=== PATIENT | female | born 1995 | race Two or more races ===

== ENCOUNTER 2017-01-03 13:17 | Emergency (ER) | payer OTHER ==
[~2017-01-03] VITALS: Ht 157.5 cm; Wt 65.0 kg
[~2017-01-03 13:17] MED LIST: ALPR-475 PO; INSU100C SQ-INSULIN; INSU100I11 SQ-INSULIN; LISI2.5T PO; SERT25TA PO
[2017-01-03 14:05] LABS: HEMATOCRIT 39.6 % (34.6-47.8); HEMOGLOBIN 13.1 g/dL (11.7-16.4); WHITE BLOOD COUNT 5.4 x10^3/uL (3.4-10)
[2017-01-03 14:18] LABS: ASPARTATE AMINO TRANSFERASE 15 U/L (15-37); BLOOD UREA NITROGEN 7 mg/dL (7-18)
[2017-01-03 14:22] VITALS: BP 146/90
== END 2017-01-03 18:00 | disposition left against medical advice (07) ==
LOC: ED 17:54
DX: R10.30 Lower abdominal pain, unspecified (principal); N93.9 Abnormal uterine and vaginal bleeding, unspecified
CPT/HCPCS: 36415; 80053; 84703; 85025; 99284

== ENCOUNTER 2017-01-22 01:34 | Inpatient (IN) | payer OTHER ==
[~2017-01-22] VITALS: Ht 157.5 cm; Wt 65.9 kg
[2017-01-22] MEDS ORDERED: ONDANSETRON 2MG/ML, 2ML ONE ×2 (01:40→04:19)
[2017-01-22] MEDS ORDERED: SODIUM CHLORIDE 0.9% 1,000ML IVBOLUS ONE ×2 (02:00→15:00)
[2017-01-22] MEDS ORDERED: ONDANSETRON 2MG/ML, 2ML IVPush ONE (02:00)
[2017-01-22 02:30] LABS: HEMATOCRIT 45.6 % (34.6-47.8); HEMOGLOBIN 15.4 g/dL (11.7-16.4); WHITE BLOOD COUNT 10.2 x10^3/uL (3.4-10)
[2017-01-22 02:35] LABS: ASPARTATE AMINO TRANSFERASE 25 U/L (15-37); BLOOD UREA NITROGEN 15 mg/dL (7-18)
[2017-01-22] MEDS ORDERED: DEXTROSE 50%, 50ML VIAL ONE (02:56)
[2017-01-22] MEDS ORDERED: DEXTROSE 50%, 50ML SYRINGE IVPush ONE (03:30)
[2017-01-22] MEDS ORDERED: ACETAMINOPHEN 325 MG TABLET PO ONE (03:30)
[2017-01-22] MEDS ORDERED: D5%-0.45NACL+KCL 20MEQ 1,000 ML IV SCH (03:30)
[2017-01-22] MEDS ORDERED: DEXTROSE 50%, 50ML VIAL IVPush ONE (03:30)
[2017-01-22] MEDS ORDERED: ACETAMINOPHEN 325 MG TABLET ONE (04:01)
[2017-01-22] MEDS: ONDANSETRON 2MG/ML, 2ML IVPush PRN ×2 (04:21→10:16)
[2017-01-22 07:41] VITALS: BP 119/73
[2017-01-22] MEDS ORDERED: ACETAMINOPHEN 325 MG TABLET PO PRN (09:30)
[2017-01-22] MEDS: INSULIN DETEMIR 100 UNITS/ML, PEN SQ-INSULIN SCH ×2 (09:30→20:37)
[2017-01-22] MEDS ORDERED: ONDANSETRON 4 MG TABLET PO ONE (10:00)
[2017-01-22] MEDS ORDERED: HYDROmorphone 2MG TABLET PO ONE (10:00)
[2017-01-22] MEDS: SODIUM CHLORIDE 0.9% 1,000 ML IV SCH ×2 (10:06→17:20)
[2017-01-22] MEDS: MORPHINE SULFATE 4 MG/ML, 1ML IVPush PRN (10:43)
[2017-01-22 12:39] VITALS: BP 128/79
[2017-01-22 20:00] VITALS: BP 122/79
[2017-01-22] MEDS: ENOXAPARIN 40 MG/0.4 ML SQ SCH (22:02)
[2017-01-23] MEDS: SODIUM CHLORIDE 0.9% 1,000 ML IV SCH ×2 (01:03→06:04)
[2017-01-23 02:00] VITALS: BP 129/82
[2017-01-23] MEDS ORDERED: DEXTROSE 50%, 50ML VIAL IVPush PRN (02:00)
[2017-01-23] MEDS ORDERED: DEXTROSE 4 GM TAB.CHEW PO PRN (02:00)
[2017-01-23] MEDS ORDERED: GLUCAGON 1 MG IM PRN (02:00)
[2017-01-23] MEDS: MORPHINE SULFATE 4 MG/ML, 1ML IVPush PRN (02:33)
[2017-01-23 05:42] LABS: HEMATOCRIT 36.6 % (34.6-47.8); HEMOGLOBIN 12.5 g/dL (11.7-16.4); WHITE BLOOD COUNT 8.3 x10^3/uL (3.4-10)
[2017-01-23 06:02] LABS: ASPARTATE AMINO TRANSFERASE 12 U/L (15-37); BLOOD UREA NITROGEN 13 mg/dL (7-18)
[2017-01-23 06:54] VITALS: BP 115/68
[2017-01-23] MEDS: SODIUM CHLORIDE FLUSH 10ML SYR IVF SCH ×2 (08:08→22:10)
[2017-01-23] MEDS: INSULIN DETEMIR 100 UNITS/ML, PEN SQ-INSULIN SCH (08:19)
[2017-01-23 12:43] VITALS: BP 126/78
[2017-01-23 20:00] VITALS: BP 128/78
[2017-01-23] MEDS: ENOXAPARIN 40 MG/0.4 ML SQ SCH (22:10)
[2017-01-24 02:00] VITALS: BP 117/76
[2017-01-24 06:37] VITALS: BP 101/67
[2017-01-24] MEDS: SODIUM CHLORIDE FLUSH 10ML SYR IVF SCH (08:14)
== END 2017-01-24 10:55 | disposition home or self-care (01) | DRG 917 ==
LOC: ED 03:32 → EDIP 04:04 → 4EST 05:54
PROVIDERS: ADMIT Hospitalist; ATTEND Hospitalist
DX: T38.3X1A Poisoning by insulin and oral hypoglycemic [antidiabetic] drugs, accidental (unintentional), initial encounter (principal); E43 Unspecified severe protein-calorie malnutrition; E10.649 Type 1 diabetes mellitus with hypoglycemia without coma; Y92.89 Other specified places as the place of occurrence of the external cause; F10.120 Alcohol abuse with intoxication, uncomplicated; F43.10 Post-traumatic stress disorder, unspecified; E83.51 Hypocalcemia; I10 Essential (primary) hypertension; Z96.41 Presence of insulin pump (external) (internal); G43.909 Migraine, unspecified, not intractable, without status migrainosus; K59.00 Constipation, unspecified; D72.829 Elevated white blood cell count, unspecified; Z79.899 Other long term (current) drug therapy; Z80.3 Family history of malignant neoplasm of breast; Z82.49 Family history of ischemic heart disease and other diseases of the circulatory system; Z68.26 Body mass index [BMI] 26.0-26.9, adult; Z88.8 Allergy status to other drugs, medicaments and biological substances
CPT/HCPCS: 36415; 80053; 80307; 82962; 84702; 84703; 85025; 85610; 85730; 96361; 96374; 96375; J1650; J2405; J1815; J7030

== ENCOUNTER 2017-06-02 17:23 | Emergency (ER) | payer OTHER ==
[~2017-06-02] VITALS: Ht 157.5 cm; Wt 64.4 kg
[2017-06-02] MEDS ORDERED: SODIUM CHLORIDE FLUSH 10ML SYR IVF ONE (18:30)
[2017-06-02] MEDS ORDERED: SODIUM CHLORIDE 0.9% 1,000ML IVBOLUS ONE (18:30)
[2017-06-02 18:39] LABS: BASOPHILS # (AUTO) 0.04 x10^3/uL (0-0.1); BASOPHILS % (AUTO) 1 % (0-1); EOSINOPHILS # (AUTO) 0.05 x10^3/uL (0-0.4); EOSINOPHILS % (AUTO) 1 % (1-7); LYMPHOCYTES # (AUTO) 0.83 x10^3/uL (1-3.4); LYMPHOCYTES % (AUTO) 11 % (22-44); MD NO; MEAN CORPUSCULAR HEMOGLOBIN 29.6 pg (27.0-34.8); MEAN CORPUSCULAR HGB CONC 33.7 g/dL (32.4-35.8); MEAN CORPUSCULAR VOLUME 87.8 fL (80-100); MONOCYTES # (AUTO) 0.53 x10^3/uL (0.2-0.8); MONOCYTES % (AUTO) 7 % (2-9); NEUTROPHILS % (AUTO) 81 % (42-75); PLATELET COUNT 239 x10^3/uL (130-400); RED CELL DISTRIBUTION WIDTH 13.1 % (9.6-15.2)
[2017-06-02 18:48] LABS: ALBUMIN 4.2 g/dL (3.4-5.0); ANION GAP 7 mmol/L (5-15); CALCIUM 9.4 mg/dL (8.5-10.1); CHLORIDE 104 mmol/L (98-107)
[2017-06-02 18:49] LABS: CREATININE 0.72 mg/dL (0.55-1.02)
[2017-06-02 18:50] LABS: RAPID INFLUENZA A Negative (Negative); RAPID INFLUENZA B Negative (Negative)
[2017-06-02 18:53] LABS: TROPONIN I < 0.015 ng/mL (0.000-0.045)
[2017-06-02 21:02] VITALS: BP 126/74
== END 2017-06-02 22:21 | disposition home or self-care (01) ==
LOC: ED 20:05
DX: B34.9 Viral infection, unspecified (principal); F43.10 Post-traumatic stress disorder, unspecified
CPT/HCPCS: 36415; 71046; 80048; 82040; 84484; 85025; 85379; 87400; 93005; 96360; 96361; 99285; J7030

== ENCOUNTER 2018-08-17 11:28 | Emergency (ER) | payer OTHER ==
[~2018-08-17] VITALS: Ht 154.9 cm; Wt 66.6 kg
[2018-08-17] MEDS ORDERED: SODIUM CHLORIDE FLUSH 10ML SYR IVF ONE ×2 (12:00→13:30)
[2018-08-17 12:27] LABS: ALBUMIN 3.8 g/dL (3.4-5.0); ANION GAP 5 mmol/L (5-15); CALCIUM 8.6 mg/dL (8.5-10.1); CHLORIDE 110 mmol/L (98-107)
[2018-08-17 12:32] LABS: BASOPHILS # (AUTO) 0.05 x10^3/uL (0-0.1); BASOPHILS % (AUTO) 1 % (0-1); CREATININE 0.69 mg/dL (0.55-1.02); EOSINOPHILS # (AUTO) 0.09 x10^3/uL (0-0.4); EOSINOPHILS % (AUTO) 2 % (1-7); LYMPHOCYTES # (AUTO) 2.06 x10^3/uL (1-3.4); LYMPHOCYTES % (AUTO) 43 % (22-44); MD NO; MEAN CORPUSCULAR HEMOGLOBIN 29.9 pg (27.0-34.8); MEAN CORPUSCULAR HGB CONC 33.9 g/dL (32.4-35.8); MEAN CORPUSCULAR VOLUME 88.2 fL (80-100); MEAN PLATELET VOLUME 9.1 fL (7.4-10.4); MONOCYTES # (AUTO) 0.39 x10^3/uL (0.2-0.8); MONOCYTES % (AUTO) 8 % (2-9); NEUTROPHILS # (AUTO) 2.21 x10^3/uL (1.8-6.8); NEUTROPHILS % (AUTO) 46 % (42-75); PLATELET COUNT 259 x10^3/uL (130-400); RED BLOOD COUNT 4.91 x10^6/uL (3.82-5.3)
--- NOTE | 2018-08-17 12:50 | NUR ---
Pt reports migraine since day before yesterday that got worse today with blurry vision. Pt is alert, oriented, with NAD. Pt is connected to the monitor. Call light within reach. Visitor at bedside.
[2018-08-17] MEDS ORDERED: PROCHLORPERAZINE 5 MG/ML, 2ML ONE (13:30)
[2018-08-17] MEDS ORDERED: DIPHENHYDRAMINE 50 MG/ML, 1ML IVPush ONE (13:30)
[2018-08-17] MEDS ORDERED: DIPHENHYDRAMINE 50 MG/ML, 1ML ONE (13:30)
[2018-08-17] MEDS ORDERED: SODIUM CHLORIDE 0.9% 1,000ML IVBOLUS ONE (13:30)
[2018-08-17] MEDS ORDERED: PROCHLORPERAZINE 5 MG/ML, 2ML IVPush ONE (13:30)
[2018-08-17 13:38] VITALS: BP 125/82
--- NOTE | 2018-08-17 13:38 | NUR ---
PT MEDICATED PER ORDER.
== END 2018-08-17 14:51 | disposition home or self-care (01) ==
LOC: ED 14:30
DX: G43.009 Migraine without aura, not intractable, without status migrainosus (principal); Z90.49 Acquired absence of other specified parts of digestive tract; E11.9 Type 2 diabetes mellitus without complications; F43.10 Post-traumatic stress disorder, unspecified
CPT/HCPCS: 36415; 80048; 82040; 84703; 85025; 96374; 96375; 99283; J0780; J1200; J7030

== ENCOUNTER 2018-11-25 00:50 | Emergency (ER) | payer OTHER ==
[~2018-11-25] VITALS: Ht 154.9 cm; Wt 60.0 kg
--- NOTE | 2018-11-25 00:56 | NUR ---
PT TO ROOM BY EMS. C/O ERRATIC BS'S, VOMITING AND HURT. ASSESSMENT DONE. PT WAITING TO BE SEEN BY MD.
[2018-11-25] MEDS ORDERED: SERT25TA3 PO (01:06)
[2018-11-25] MEDS ORDERED: TOPI50TA35 PO (01:06)
[2018-11-25] MEDS ORDERED: PROMETHAZINE 25 MG/ML, 1ML IM ONE (01:30)
[2018-11-25] MEDS ORDERED: SODIUM CHLORIDE FLUSH 10ML SYR IVF ONE (01:30)
[2018-11-25] MEDS ORDERED: ACETAMINOPHEN 500 MG TABLET PO ONE (01:30)
[2018-11-25] MEDS ORDERED: SODIUM CHLORIDE 0.9% 1,000ML IVBOLUS ONE (01:30)
[2018-11-25] MEDS ORDERED: ONDANSETRON ODT 4 MG PO ONE ×2 (01:30→02:00)
[2018-11-25] MEDS ORDERED: PROMETHAZINE 25 MG/ML, 1ML ONE (01:33)
[2018-11-25] MEDS ORDERED: ONDANSETRON ODT 4 MG ONE (01:33)
[2018-11-25] MEDS ORDERED: ACETAMINOPHEN 500 MG TABLET ONE (01:39)
[2018-11-25 02:45] LABS: BASOPHILS # (AUTO) 0.03 x10^3/uL (0-0.1); BASOPHILS % (AUTO) 0 % (0-1); EOSINOPHILS # (AUTO) 0.01 x10^3/uL (0-0.4); EOSINOPHILS % (AUTO) 0 % (1-7); LYMPHOCYTES # (AUTO) 1.13 x10^3/uL (1-3.4); LYMPHOCYTES % (AUTO) 11 % (22-44); MD NO; MEAN CORPUSCULAR HEMOGLOBIN 31.1 pg (27.0-34.8); MEAN CORPUSCULAR HGB CONC 33.1 g/dL (32.4-35.8); MEAN PLATELET VOLUME 9.7 fL (7.4-10.4); MONOCYTES # (AUTO) 0.38 x10^3/uL (0.2-0.8); MONOCYTES % (AUTO) 4 % (2-9); NEUTROPHILS # (AUTO) 8.98 x10^3/uL (1.8-6.8); NEUTROPHILS % (AUTO) 85 % (42-75); PLATELET COUNT 238 x10^3/uL (130-400); RED BLOOD COUNT 4.72 x10^6/uL (3.82-5.3); RED CELL DISTRIBUTION WIDTH 13.4 % (9.6-15.2)
[2018-11-25 02:55] LABS: ALANINE AMINOTRANSFERASE 15 U/L (12-78); ALBUMIN 4.2 g/dL (3.4-5.0); ANION GAP 8 mmol/L (5-15); CALCIUM 8.9 mg/dL (8.5-10.1); CHLORIDE 111 mmol/L (98-107); CREATININE 0.76 mg/dL (0.55-1.02)
[2018-11-25 02:57] LABS: ALKALINE PHOSPHATASE 65 U/L (45-117); BILIRUBIN,TOTAL 0.5 mg/dL (0.2-1.0); TOTAL PROTEIN 7.2 g/dL (6.4-8.2)
--- NOTE | 2018-11-25 03:07 | NUR ---
PT TO ULTRASOUND.
--- NOTE | 2018-11-25 03:31 | NUR ---
PT RESTING QUIETLY, STATES HURT AND N/V IMPROVED.
[2018-11-25 03:45] LABS: HCG UR SG 1.025 (1.003-1.030); MICROSCOPIC INDICATED
[2018-11-25 03:54] LABS: CULTURE INDICATED? YES
--- NOTE | 2018-11-25 04:29 | NUR ---
PT DC'D HOME WITH RX X 2 AND UNDERSTANDING OF INSTRUCTIONS. PT AND FAMILY MEMBER ESCORTED TO DC DESK, PT GAIT STEADY.
[2018-11-25 04:30] VITALS: BP 109/58
== END 2018-11-25 04:32 | disposition home or self-care (01) ==
LOC: ED 02:04
DX: O23.41 Unspecified infection of urinary tract in pregnancy, first trimester (principal); O24.911 Unspecified diabetes mellitus in pregnancy, first trimester; O21.9 Vomiting of pregnancy, unspecified; Z3A.13 13 weeks gestation of pregnancy
CPT/HCPCS: 36415; 76801; 80053; 81001; 81025; 84702; 85025; 87086; 96372; 99284; J2550; Q0162; 84703

== ENCOUNTER 2018-12-06 12:10 | Emergency (ER) | payer OTHER ==
[~2018-12-06] VITALS: Ht 154.9 cm; Wt 62.8 kg
[~2018-12-06 12:10] MED LIST changes: +SERT25TA3 PO; +TOPI50TA35 PO
--- NOTE | 2018-12-06 12:30 | NUR ---
PT TO ULTRASOUND AT THIS ITIME.
[2018-12-06 12:32] VITALS: BP 138/74
--- NOTE | 2018-12-06 13:06 | NUR ---
URINE COLLECTED AND SENT TO LAB.
[2018-12-06 13:18] LABS: BASOPHILS # (AUTO) 0.04 x10^3/uL (0-0.1); BASOPHILS % (AUTO) 1 % (0-1); EOSINOPHILS # (AUTO) 0.04 x10^3/uL (0-0.4); EOSINOPHILS % (AUTO) 1 % (1-7); LYMPHOCYTES # (AUTO) 1.27 x10^3/uL (1-3.4); LYMPHOCYTES % (AUTO) 19 % (22-44); MD NO; MEAN CORPUSCULAR HEMOGLOBIN 30.5 pg (27.0-34.8); MEAN CORPUSCULAR HGB CONC 33.1 g/dL (32.4-35.8); MEAN PLATELET VOLUME 9.2 fL (7.4-10.4); MONOCYTES # (AUTO) 0.38 x10^3/uL (0.2-0.8); MONOCYTES % (AUTO) 6 % (2-9); NEUTROPHILS # (AUTO) 5.01 x10^3/uL (1.8-6.8); NEUTROPHILS % (AUTO) 74 % (42-75); PLATELET COUNT 205 x10^3/uL (130-400); RED BLOOD COUNT 4.49 x10^6/uL (3.82-5.3); RED CELL DISTRIBUTION WIDTH 13.1 % (9.6-15.2)
[2018-12-06 13:18] LABS: MICROSCOPIC NOT IND
[2018-12-06 13:19] LABS: CULTURE INDICATED? NO
[2018-12-06 13:26] LABS: ALBUMIN 3.6 g/dL (3.4-5.0); ANION GAP 8 mmol/L (5-15); CALCIUM 8.5 mg/dL (8.5-10.1); CHLORIDE 106 mmol/L (98-107)
[2018-12-06 13:44] LABS: ALANINE AMINOTRANSFERASE 11 U/L (12-78); ALKALINE PHOSPHATASE 60 U/L (45-117); CREATININE 0.67 mg/dL (0.55-1.02); TOTAL PROTEIN 6.7 g/dL (6.4-8.2)
--- NOTE | 2018-12-06 14:08 | NUR ---
Patient/Caregiver given discharge instructions and they have confirmed that they understand the instructions. Patient ambulatory with steady gait.
== END 2018-12-06 14:09 | disposition home or self-care (01) ==
LOC: ED 13:24
DX: O20.9 Hemorrhage in early pregnancy, unspecified (principal); O24.419 Gestational diabetes mellitus in pregnancy, unspecified control; Z3A.01 Less than 8 weeks gestation of pregnancy
CPT/HCPCS: 36415; 76801; 80053; 81003; 84702; 85025; 99284

== ENCOUNTER 2019-04-27 19:09 | Outpatient (CLI) | payer OTHER ==
[~2019-04-27] VITALS: Ht 154.9 cm; Wt 63.0 kg
[~2019-04-27 19:09] MED LIST changes: -ALPR-475 PO; +ALPR0.5T7 PO; +NITR100C56 PO; +PRENATAL
[2019-04-27 19:28] VITALS: BP 129/85
[2019-04-27 22:16] LABS: MEAN CORPUSCULAR VOLUME 96.9 fL (80-100); PLATELET COUNT 225 x10^3/uL (130-400); RED BLOOD COUNT 4.28 x10^6/uL (3.82-5.3); RED CELL DISTRIBUTION WIDTH 13.4 % (9.6-15.2)
[2019-04-27 22:37] LABS: HEMOGLOBIN A1C 7.4 % (4.2-6.3)
== END 2019-04-27 23:05 | disposition home or self-care (01) ==
LOC: LDOP 19:09
PROVIDERS: ATTEND Obstetrics & Gynecology
DX: O26.892 Other specified pregnancy related conditions, second trimester (principal); Z3A.27 27 weeks gestation of pregnancy
CPT/HCPCS: 36415; 83036; 85027; 86592; 86762; 86850; 86900; 87340; 87389; 99211; G0463

== ENCOUNTER 2019-05-08 03:46 | Inpatient (IN) | payer OTHER ==
[~2019-05-08] VITALS: Ht 154.9 cm; Wt 65.0 kg
[2019-05-08 04:34] VITALS: BP 133/72
[2019-05-08 04:59] LABS: CULTURE INDICATED? YES; MICROSCOPIC INDICATED
[2019-05-08] MEDS ORDERED: OXYcodone/APAP 5/325MG TABLET PO PRN (05:30)
[2019-05-08] MEDS ORDERED: OXYcodone/APAP 5/325MG TABLET ONE ×2 (05:32→16:48)
[2019-05-08] MEDS: OXYcodone/APAP 5/325MG TABLET PO PRN ×2 (05:35→16:50)
[2019-05-08] MEDS: LACTATED RINGERS 1,000 ML IV SCH ×3 (05:37→22:33)
[2019-05-08] MEDS ORDERED: ONDANSETRON 2MG/ML, 2ML ONE ×3 (05:39→23:30)
[2019-05-08] MEDS: CEFAZOLIN PMX 1GM/50ML 50 ML IVPB SCH ×3 (05:41→21:14)
[2019-05-08] MEDS: ONDANSETRON 2MG/ML, 2ML IVPush PRN ×3 (05:41→23:34)
[2019-05-08 07:04] LABS: BASOPHILS # (AUTO) 0.03 x10^3/uL (0-0.1); BASOPHILS % (AUTO) 0 % (0-1); EOSINOPHILS # (AUTO) 0.05 x10^3/uL (0-0.4); EOSINOPHILS % (AUTO) 1 % (1-7); LYMPHOCYTES # (AUTO) 1.54 x10^3/uL (1-3.4); LYMPHOCYTES % (AUTO) 16 % (22-44); MD NO; MEAN CORPUSCULAR HEMOGLOBIN 31.3 pg (27.0-34.8); MEAN CORPUSCULAR HGB CONC 33.1 g/dL (32.4-35.8); MEAN CORPUSCULAR VOLUME 94.4 fL (80-100); MEAN PLATELET VOLUME 9.1 fL (7.4-10.4); MONOCYTES # (AUTO) 0.72 x10^3/uL (0.2-0.8); MONOCYTES % (AUTO) 8 % (2-9); NEUTROPHILS # (AUTO) 7.08 x10^3/uL (1.8-6.8); NEUTROPHILS % (AUTO) 75 % (42-75); PLATELET COUNT 157 x10^3/uL (130-400); RED BLOOD COUNT 3.88 x10^6/uL (3.82-5.3); RED CELL DISTRIBUTION WIDTH 13.1 % (9.6-15.2)
[2019-05-08 07:45] VITALS: BP 115/67
[2019-05-08 12:30] VITALS: BP 119/70
[2019-05-08] MEDS ORDERED: METOCLOPRAMIDE 5 MG/ML, 2ML ONE (21:02)
[2019-05-08] MEDS: METOCLOPRAMIDE 5 MG/ML, 2ML IVPush PRN (21:04)
[2019-05-08] MEDS: PROMETHAZINE 25 MG SUPP PR PRN (21:53)
[2019-05-08] MEDS ORDERED: MORPHINE SULFATE 4 MG/ML, 1ML ONE (23:30)
[2019-05-08] MEDS: MORPHINE SULFATE 4 MG/ML, 1ML IVPush PRN (23:34)
[2019-05-09] MEDS ORDERED: DIPHENHYDRAMINE 50 MG/ML, 1ML ONE (02:54)
[2019-05-09] MEDS ORDERED: DIPHENHYDRAMINE 50 MG/ML, 1ML IVPush PRN (03:00)
[2019-05-09] MEDS ORDERED: LACTATED RINGERS 1,000 ML IVBOLUS ONE (03:00)
[2019-05-09] MEDS ORDERED: ACETAMINOPHEN 650 MG SUPP PR ONE (03:00)
[2019-05-09] MEDS: MORPHINE SULFATE 4 MG/ML, 1ML IVPush PRN (03:25)
[2019-05-09 04:28] LABS: MICROSCOPIC NOT IND
[2019-05-09] MEDS: LACTATED RINGERS 1,000 ML IV SCH (04:59)
[2019-05-09] MEDS: CEFAZOLIN PMX 1GM/50ML 50 ML IVPB SCH ×3 (05:03→21:15)
[2019-05-09 06:23] LABS: MEAN CORPUSCULAR HEMOGLOBIN 32.3 pg (27.0-34.8); MEAN CORPUSCULAR VOLUME 94.8 fL (80-100); MEAN PLATELET VOLUME 9.4 fL (7.4-10.4); PLATELET COUNT 170 x10^3/uL (130-400); RED BLOOD COUNT 4.41 x10^6/uL (3.82-5.3); RED CELL DISTRIBUTION WIDTH 13.1 % (9.6-15.2)
[2019-05-09 06:32] LABS: ALANINE AMINOTRANSFERASE 20 U/L (12-78); ALBUMIN 2.4 g/dL (3.4-5.0); ANION GAP 14 mmol/L (5-15); CALCIUM 8.3 mg/dL (8.5-10.1); CHLORIDE 105 mmol/L (98-107); CREATININE 0.73 mg/dL (0.55-1.02)
[2019-05-09 06:35] LABS: ALKALINE PHOSPHATASE 76 U/L (45-117); BILIRUBIN,TOTAL 1.1 mg/dL (0.2-1.0); TOTAL PROTEIN 6.2 g/dL (6.4-8.2)
[2019-05-09] MEDS ORDERED: SODIUM CHLORIDE 0.9% 1,000 ML IV SCH ×3 (07:30→09:00)
[2019-05-09 07:34] LABS: BASOPHILS # (AUTO) 0.01 x10^3/uL (0-0.1); BASOPHILS % (AUTO) 0 % (0-1); EOSINOPHILS # (AUTO) 0.07 x10^3/uL (0-0.4); EOSINOPHILS % (AUTO) 1 % (1-7); LYMPHOCYTES % (AUTO) 3 % (22-44); MD SCAN; MONOCYTES # (AUTO) 0.16 x10^3/uL (0.2-0.8); MONOCYTES % (AUTO) 1 % (2-9); NEUTROPHILS # (AUTO) 11.37 x10^3/uL (1.8-6.8); NEUTROPHILS % (AUTO) 95 % (42-75)
[2019-05-09 08:40] LABS: ANION GAP 16 mmol/L (5-15); CALCIUM 8.1 mg/dL (8.5-10.1); CHLORIDE 106 mmol/L (98-107)
[2019-05-09 08:42] LABS: CREATININE 0.57 mg/dL (0.55-1.02)
[2019-05-09 09:01] LABS: FIO2 ROOM AIR %
[2019-05-09] MEDS ORDERED: ONDANSETRON 2MG/ML, 2ML ONE ×2 (10:30→19:18)
[2019-05-09] MEDS: ONDANSETRON 2MG/ML, 2ML IVPush PRN ×2 (10:32→19:21)
[2019-05-09 11:51] LABS: ANION GAP 12 mmol/L (5-15); CALCIUM 7.9 mg/dL (8.5-10.1); CHLORIDE 109 mmol/L (98-107); CREATININE 0.67 mg/dL (0.55-1.02)
[2019-05-09] MEDS: SODIUM CHLORIDE 0.9% 1,000 ML IV SCH ×2 (13:30→22:37)
[2019-05-09 17:14] LABS: ANION GAP 8 mmol/L (5-15); CALCIUM 7.8 mg/dL (8.5-10.1); CHLORIDE 111 mmol/L (98-107); CREATININE 0.57 mg/dL (0.55-1.02)
[2019-05-09] MEDS ORDERED: ACETAMINOPHEN 325 MG TABLET ONE ×2 (19:18→19:23)
[2019-05-09] MEDS ORDERED: ACETAMINOPHEN 325 MG TABLET PO PRN (19:30)
[2019-05-09 19:47] VITALS: BP 104/53
[2019-05-09 21:59] LABS: ANION GAP 13 mmol/L (5-15); CALCIUM 8.4 mg/dL (8.5-10.1); CHLORIDE 108 mmol/L (98-107)
[2019-05-09 22:01] LABS: CREATININE 0.79 mg/dL (0.55-1.02)
[2019-05-09] MEDS ORDERED: CALCIUM CARBONATE 500 MG TAB.CHEW ONE (22:06)
[2019-05-09] MEDS: CALCIUM CARBONATE 500 MG TAB.CHEW PO PRN (22:07)
[2019-05-09] MEDS: PROMETHAZINE 25 MG SUPP PR PRN (22:36)
[2019-05-09] MEDS ORDERED: METOCLOPRAMIDE 5 MG/ML, 2ML ONE (22:55)
[2019-05-09] MEDS: METOCLOPRAMIDE 5 MG/ML, 2ML IVPush PRN (23:00)
[2019-05-10] MEDS ORDERED: DOXYLAMINE 25MG TABLET PO PRN ×2 (01:30→03:30)
[2019-05-10] MEDS ORDERED: ONDANSETRON 2MG/ML, 2ML ONE ×3 (01:48→15:00)
[2019-05-10] MEDS: CEFAZOLIN PMX 1GM/50ML 50 ML IVPB SCH ×3 (05:13→21:26)
[2019-05-10] MEDS: PROMETHAZINE 25 MG SUPP PR PRN ×2 (05:13→11:11)
[2019-05-10 05:20] VITALS: BP 145/80
[2019-05-10] MEDS ORDERED: CALCIUM CARBONATE 500 MG TAB.CHEW ONE (05:46)
[2019-05-10] MEDS: CALCIUM CARBONATE 500 MG TAB.CHEW PO PRN (05:47)
[2019-05-10] MEDS: PYRIDOXINE 50MG TABLET PO PRN ×2 (05:53→15:02)
[2019-05-10] MEDS ORDERED: METOCLOPRAMIDE 5 MG/ML, 2ML ONE ×2 (05:55→11:43)
[2019-05-10] MEDS: METOCLOPRAMIDE 5 MG/ML, 2ML IVPush PRN ×2 (05:56→11:44)
[2019-05-10 06:57] LABS: ANION GAP 9 mmol/L (5-15); CALCIUM 8.1 mg/dL (8.5-10.1); CHLORIDE 110 mmol/L (98-107)
[2019-05-10] MEDS ORDERED: SODIUM CHLORIDE 0.9% 1,000 ML IV SCH (07:30)
[2019-05-10] MEDS: ONDANSETRON 2MG/ML, 2ML IVPush PRN ×2 (08:24→15:02)
[2019-05-10 08:36] VITALS: BP 137/74
[2019-05-10] MEDS ORDERED: FAMOTIDINE 20 MG/2 ML IVPush SCH (09:00)
[2019-05-10] MEDS ORDERED: PYRIDOXINE 50MG TABLET PO SCH (09:00)
[2019-05-10] MEDS: FAMOTIDINE 20 MG/2 ML IVPush SCH (11:02)
[2019-05-10] MEDS: SODIUM CHLORIDE 0.9% 1,000 ML IV SCH ×2 (11:02→20:07)
[2019-05-10 12:31] LABS: BASOPHILS # (AUTO) 0.02 x10^3/uL (0-0.1); BASOPHILS % (AUTO) 0 % (0-1); EOSINOPHILS % (AUTO) 0 % (1-7); LYMPHOCYTES # (AUTO) 1.07 x10^3/uL (1-3.4); LYMPHOCYTES % (AUTO) 12 % (22-44); MD NO; MEAN CORPUSCULAR HEMOGLOBIN 31.7 pg (27.0-34.8); MEAN CORPUSCULAR HGB CONC 32.7 g/dL (32.4-35.8); MEAN CORPUSCULAR VOLUME 96.9 fL (80-100); MEAN PLATELET VOLUME 8.8 fL (7.4-10.4); MONOCYTES # (AUTO) 0.66 x10^3/uL (0.2-0.8); MONOCYTES % (AUTO) 7 % (2-9); NEUTROPHILS # (AUTO) 7.49 x10^3/uL (1.8-6.8); NEUTROPHILS % (AUTO) 81 % (42-75); PLATELET COUNT 210 x10^3/uL (130-400); RED BLOOD COUNT 3.97 x10^6/uL (3.82-5.3); RED CELL DISTRIBUTION WIDTH 13.9 % (9.6-15.2)
[2019-05-10 12:39] LABS: ANION GAP 8 mmol/L (5-15); CALCIUM 8.2 mg/dL (8.5-10.1); CHLORIDE 110 mmol/L (98-107); CREATININE 0.62 mg/dL (0.55-1.02)
[2019-05-10] MEDS ORDERED: DEXTROSE 4 GM TAB.CHEW PO PRN (13:00)
[2019-05-10] MEDS ORDERED: DEXTROSE 50%, 50ML SYRINGE IVPush PRN (13:00)
[2019-05-10] MEDS ORDERED: GLUCAGON 1 MG IM PRN (13:00)
[2019-05-10] MEDS ORDERED: MAGNESIUM SULF. PMX 20GM/500ML 500 ML IV ONE (16:44)
[2019-05-10] MEDS ORDERED: MAGNESIUM SULFATE PMX 2GM/50ML 50 ML IVPB ONE (17:00)
[2019-05-10] MEDS ORDERED: NEWBORN KIT ONE (17:03)
[2019-05-10] MEDS: MAGNESIUM SULF. PMX 20GM/500ML 500 ML IV PRN ×2 (17:20→20:08)
[2019-05-10 18:01] LABS: MICROSCOPIC NOT IND
[2019-05-10 18:11] LABS: CULTURE INDICATED? NO
[2019-05-10] MEDS: INSULIN LISPRO 100 UNITS/ML, PEN SQ-INSULIN SCH ×2 (18:37→19:30)
[2019-05-10 19:53] LABS: ALBUMIN 2.3 g/dL (3.4-5.0); BILIRUBIN, DIRECT 0.2 mg/dL (0.1-0.2)
[2019-05-10 19:55] LABS: BILIRUBIN,INDIRECT 0.4 mg/dL (0.0-2.0); BILIRUBIN,TOTAL 0.6 mg/dL (0.2-1.0); TOTAL PROTEIN 5.7 g/dL (6.4-8.2)
[2019-05-10] MEDS ORDERED: SODIUM CHLORIDE FLUSH 10ML SYR IVF SCH (21:00)
[2019-05-10] MEDS ORDERED: ZOLPIDEM 5MG TABLET ONE (23:55)
[2019-05-11] MEDS ORDERED: ZOLPIDEM 5MG TABLET PO SCH
[2019-05-11] MEDS: SODIUM CHLORIDE 0.9% 1,000 ML IV SCH (02:57)
[2019-05-11 03:06] LABS: ANION GAP 9 mmol/L (5-15); CALCIUM 6.6 mg/dL (8.5-10.1); CHLORIDE 111 mmol/L (98-107); CREATININE 0.54 mg/dL (0.55-1.02)
[2019-05-11] MEDS ORDERED: MAGNESIUM SULF. PMX 20GM/500ML 500 ML IV ONE (04:06)
[2019-05-11] MEDS: MAGNESIUM SULF. PMX 20GM/500ML 500 ML IV PRN (04:11)
[2019-05-11] MEDS: CEFAZOLIN PMX 1GM/50ML 50 ML IVPB SCH ×2 (05:37→13:50)
[2019-05-11] MEDS ORDERED: D5%-0.45NACL+KCL 20MEQ 1,000 ML IV SCH (05:49)
[2019-05-11] MEDS: INSULIN LISPRO 100 UNITS/ML, PEN SQ-INSULIN SCH ×3 (07:30→13:10)
[2019-05-11] MEDS: FAMOTIDINE 20 MG/2 ML IVPush SCH (10:57)
[2019-05-11] MEDS ORDERED: NITR100C56 PO (17:50)
[2019-05-11] MEDS ORDERED: INSU100C SQ-INSULIN (17:51)
[2019-05-11] MEDS ORDERED: PREN1TAB60 PO (17:51)
== END 2019-05-11 18:22 | disposition home or self-care (01) | DRG 831 ==
LOC: LDOP 03:46 → LDIP 05:18
PROVIDERS: ADMIT Obstetrics & Gynecology; ATTEND Obstetrics & Gynecology
PROC: 0T9B70Z Drainage of Bladder with Drainage Device, Via Natural or Artificial Opening (ICD-10-PCS; principal; 2019-05-10)
DX: O23.03 Infections of kidney in pregnancy, third trimester (principal); E10.10 Type 1 diabetes mellitus with ketoacidosis without coma; N13.6 Pyonephrosis; F43.10 Post-traumatic stress disorder, unspecified; O99.343 Other mental disorders complicating pregnancy, third trimester; Z3A.29 29 weeks gestation of pregnancy; Z83.3 Family history of diabetes mellitus; Z96.41 Presence of insulin pump (external) (internal); Z88.8 Allergy status to other drugs, medicaments and biological substances
CPT/HCPCS: 36415; 36600; J3490; 76770; 80048; 80053; 80076; 81001; 81003; 82150; 82803; 82962; 83690; 83735; 85025; 87040; 87077; 87086; 87186; 89060; G0378; J0690; J2405; J1200; J2270; J2765; J3475; J3480; J7030; J7120; Q0114

== ENCOUNTER 2019-05-12 10:42 | Inpatient (IN) | payer OTHER ==
[~2019-05-12] VITALS: Ht 154.9 cm; Wt 65.0 kg
[2019-05-12] MEDS: SODIUM CHLORIDE 0.9% 1,000 ML IV SCH ×2 (10:40→22:15)
[~2019-05-12 10:42] MED LIST changes: +PREN1TAB60 PO
[2019-05-12] MEDS ORDERED: ONDANSETRON 2MG/ML, 2ML ONE ×4 (10:48→23:45)
[2019-05-12] MEDS ORDERED: PLEASE ENTER HEIGHT AND WEIGHT MC SCH ×2 (11:00→13:30)
[2019-05-12] MEDS ORDERED: ONDANSETRON 2MG/ML, 2ML IVPush ONE (11:00)
[2019-05-12] MEDS ORDERED: MORPHINE SULFATE 4 MG/ML, 1ML ONE ×2 (11:10→11:31)
[2019-05-12 11:22] LABS: BASOPHILS # (AUTO) 0.02 x10^3/uL (0-0.1); BASOPHILS % (AUTO) 0 % (0-1); EOSINOPHILS # (AUTO) 0.03 x10^3/uL (0-0.4); EOSINOPHILS % (AUTO) 0 % (1-7); LYMPHOCYTES # (AUTO) 1.15 x10^3/uL (1-3.4); LYMPHOCYTES % (AUTO) 19 % (22-44); MD NO; MEAN CORPUSCULAR HEMOGLOBIN 31.4 pg (27.0-34.8); MEAN CORPUSCULAR HGB CONC 33.6 g/dL (32.4-35.8); MEAN CORPUSCULAR VOLUME 93.7 fL (80-100); MEAN PLATELET VOLUME 8.1 fL (7.4-10.4); MONOCYTES # (AUTO) 0.51 x10^3/uL (0.2-0.8); MONOCYTES % (AUTO) 8 % (2-9); NEUTROPHILS # (AUTO) 4.32 x10^3/uL (1.8-6.8); NEUTROPHILS % (AUTO) 72 % (42-75); PLATELET COUNT 204 x10^3/uL (130-400); RED CELL DISTRIBUTION WIDTH 13.3 % (9.6-15.2)
[2019-05-12 11:24] LABS: MICROSCOPIC INDICATED
[2019-05-12] MEDS ORDERED: MORPHINE SULFATE 4 MG/ML, 1ML IVPush PRN (11:30)
[2019-05-12 11:33] LABS: ALBUMIN 2.4 g/dL (3.4-5.0); ANION GAP 8 mmol/L (5-15); CALCIUM 7.7 mg/dL (8.5-10.1); CHLORIDE 114 mmol/L (98-107)
[2019-05-12 11:36] LABS: ALANINE AMINOTRANSFERASE 23 U/L (12-78); ALKALINE PHOSPHATASE 66 U/L (45-117); BILIRUBIN,TOTAL 0.4 mg/dL (0.2-1.0); CREATININE 0.62 mg/dL (0.55-1.02); TOTAL PROTEIN 5.8 g/dL (6.4-8.2)
[2019-05-12 11:36] LABS: AMPHETAMINE SCREEN, URINE Negative (Negative); BARBITURATE SCREEN, URINE Negative (Negative); BENZODIAZEPINE SCREEN, URINE Negative (Negative); CANNABINOID SCREEN, URINE Negative (Negative); COCAINE SCREEN, URINE Negative (Negative); METHADONE SCREEN, URINE Negative (Negative); OPIATE SCREEN, URINE Negative (Negative); PROTEIN/CREATININE RATIO,URINE 981 (0-200); TOTAL PROTEIN,URINE RANDOM 21 mg/dL (0-12); URIC ACID,URINE RANDOM 24.3 mg/dL
[2019-05-12] MEDS ORDERED: HYDROXYZINE PAMOATE 25MG CAP PO ONE (12:00)
[2019-05-12] MEDS ORDERED: MAGNESIUM SULF. PMX 20GM/500ML 500 ML IV ONE ×2 (13:00→20:55)
[2019-05-12] MEDS ORDERED: MAGNESIUM SULFATE PMX 4GM/100M 100 ML IVPB ONE (13:00)
[2019-05-12] MEDS: MAGNESIUM SULF. PMX 20GM/500ML 500 ML IV SCH ×3 (13:21→21:35)
[2019-05-12] MEDS ORDERED: hydrOXYzine 50 MG/ML IM ONE (13:30)
[2019-05-12] MEDS ORDERED: SODIUM CHLORIDE 0.9% 1,000 ML IV SCH (15:30)
[2019-05-12] MEDS ORDERED: POTASSIUM CHLORIDE 40 MEQ in SODIUM CHLORIDE 0.9% 500 ML IV ONE (15:30)
[2019-05-12] MEDS: ONDANSETRON 2MG/ML, 2ML IVPush PRN ×3 (15:46→23:47)
[2019-05-12] MEDS ORDERED: INSULIN LISPRO 100 UNITS/ML, PEN SQ-INSULIN SCH (16:00)
[2019-05-12] MEDS ORDERED: ONDANSETRON 2MG/ML, 2ML IVPush PRN (16:00)
[2019-05-12] MEDS: CEFTRIAXONE PMX 2GM/50ML 50 ML IV SCH (16:44)
[2019-05-13 07:30] VITALS: BP 102/60
[2019-05-13] MEDS ORDERED: MAGNESIUM SULF. PMX 20GM/500ML 500 ML IV ONE ×2 (07:43→18:45)
[2019-05-13] MEDS: MAGNESIUM SULF. PMX 20GM/500ML 500 ML IV SCH ×2 (07:45→18:48)
[2019-05-13 08:52] LABS: BASOPHILS % (AUTO) 0 % (0-1); EOSINOPHILS # (AUTO) 0.07 x10^3/uL (0-0.4); EOSINOPHILS % (AUTO) 1 % (1-7); LYMPHOCYTES # (AUTO) 1.24 x10^3/uL (1-3.4); LYMPHOCYTES % (AUTO) 24 % (22-44); MD NO; MEAN CORPUSCULAR HEMOGLOBIN 32.3 pg (27.0-34.8); MEAN CORPUSCULAR HGB CONC 33.9 g/dL (32.4-35.8); MEAN CORPUSCULAR VOLUME 95.1 fL (80-100); MONOCYTES # (AUTO) 0.53 x10^3/uL (0.2-0.8); MONOCYTES % (AUTO) 10 % (2-9); NEUTROPHILS # (AUTO) 3.33 x10^3/uL (1.8-6.8); NEUTROPHILS % (AUTO) 64 % (42-75); PLATELET COUNT 186 x10^3/uL (130-400); RED BLOOD COUNT 3.48 x10^6/uL (3.82-5.3); RED CELL DISTRIBUTION WIDTH 13.5 % (9.6-15.2)
[2019-05-13 08:59] LABS: ALANINE AMINOTRANSFERASE 19 U/L (12-78); ALBUMIN 1.9 g/dL (3.4-5.0); ANION GAP 6 mmol/L (5-15); CALCIUM 6.3 mg/dL (8.5-10.1); CHLORIDE 108 mmol/L (98-107); CREATININE 0.58 mg/dL (0.55-1.02)
[2019-05-13 09:01] LABS: ALKALINE PHOSPHATASE 53 U/L (45-117); BILIRUBIN,TOTAL 0.4 mg/dL (0.2-1.0); TOTAL PROTEIN 4.8 g/dL (6.4-8.2)
[2019-05-13] MEDS: SODIUM CHLORIDE 0.9% 1,000 ML IV SCH (12:57)
[2019-05-13] MEDS: CEFTRIAXONE PMX 2GM/50ML 50 ML IV SCH (15:43)
[2019-05-13] MEDS ORDERED: DOCUSATE 100 MG CAPSULE ONE (22:15)
[2019-05-13] MEDS ORDERED: DOCUSATE 100 MG CAPSULE PO PRN ×2 (22:30)
[2019-05-14] MEDS: SODIUM CHLORIDE 0.9% 1,000 ML IV SCH (02:34)
[2019-05-14] MEDS ORDERED: MAGNESIUM SULF. PMX 20GM/500ML 500 ML IV ONE (03:52)
[2019-05-14] MEDS: MAGNESIUM SULF. PMX 20GM/500ML 500 ML IV SCH (03:58)
[2019-05-14] MEDS ORDERED: OMEPRAZOLE 20 MG CAPSULE.DR PO SCH (06:00)
[2019-05-14 10:35] VITALS: BP 138/78
== END 2019-05-14 11:22 | disposition home or self-care (01) | DRG 832 ==
LOC: LDOP 10:42 → LDIP 13:28
PROVIDERS: ADMIT Obstetrics & Gynecology; ATTEND Obstetrics & Gynecology
DX: O99.283 Endocrine, nutritional and metabolic diseases complicating pregnancy, third trimester (principal); N13.6 Pyonephrosis; O23.03 Infections of kidney in pregnancy, third trimester; O24.013 Pre-existing type 1 diabetes mellitus, in pregnancy, third trimester; E10.9 Type 1 diabetes mellitus without complications; E87.6 Hypokalemia; Z96.41 Presence of insulin pump (external) (internal); Z3A.29 29 weeks gestation of pregnancy
CPT/HCPCS: 76705; 76815; 80053; 80307; 81001; 82570; 82962; 83735; 84156; 84560; 85025; 87086; G0378; J0696; J2405; J3410; J3480; J2270; J3475; J7030; J7040

== ENCOUNTER 2019-06-18 01:58 | Inpatient (IN) | payer OTHER, MEDICAID ==
[~2019-06-18] VITALS: Ht 154.9 cm; Wt 70.0 kg
[2019-06-18 02:19] VITALS: BP 137/91
[2019-06-18 02:28] LABS: BASOPHILS # (AUTO) 0.05 x10^3/uL (0-0.1); BASOPHILS % (AUTO) 1 % (0-1); EOSINOPHILS # (AUTO) 0.07 x10^3/uL (0-0.4); EOSINOPHILS % (AUTO) 1 % (1-7); LYMPHOCYTES # (AUTO) 2.32 x10^3/uL (1-3.4); LYMPHOCYTES % (AUTO) 29 % (22-44); MD NO; MEAN CORPUSCULAR HGB CONC 33.4 g/dL (32.4-35.8); MEAN CORPUSCULAR VOLUME 89.8 fL (80-100); MEAN PLATELET VOLUME 10.7 fL (7.4-10.4); MONOCYTES # (AUTO) 0.52 x10^3/uL (0.2-0.8); MONOCYTES % (AUTO) 7 % (2-9); NEUTROPHILS # (AUTO) 4.98 x10^3/uL (1.8-6.8); NEUTROPHILS % (AUTO) 63 % (42-75); PLATELET COUNT 193 x10^3/uL (130-400); RED BLOOD COUNT 4.19 x10^6/uL (3.82-5.3); RED CELL DISTRIBUTION WIDTH 12.6 % (9.6-15.2)
[2019-06-18 02:31] LABS: MICROSCOPIC AUTO
[2019-06-18 02:36] LABS: ALANINE AMINOTRANSFERASE 12 U/L (12-78); ALBUMIN 2.3 g/dL (3.4-5.0); ANION GAP 8 mmol/L (5-15); CALCIUM 8.9 mg/dL (8.5-10.1); CHLORIDE 107 mmol/L (98-107); CREATININE 0.57 mg/dL (0.55-1.02)
[2019-06-18] MEDS ORDERED: ASPI-515 PO (02:37)
[2019-06-18] MEDS ORDERED: vit D PO (02:37)
[2019-06-18 02:39] LABS: ALKALINE PHOSPHATASE 103 U/L (45-117); BILIRUBIN, DIRECT < 0.1 mg/dL (0.1-0.2); BILIRUBIN,TOTAL 0.3 mg/dL (0.2-1.0); TOTAL PROTEIN 6.2 g/dL (6.4-8.2)
[2019-06-18] MEDS ORDERED: SODIUM CHLORIDE 0.45% 1,000 ML IV PRN (03:47)
[2019-06-18] MEDS ORDERED: MAGNESIUM SULFATE PMX 4GM/100M 100 ML ONE (03:49)
[2019-06-18] MEDS ORDERED: MAGNESIUM SULFATE PMX 2GM/50ML 50 ML IVPB ONE (04:00)
[2019-06-18] MEDS ORDERED: hydrALAzine 20 MG/ML, 1ML IVPush ONE ×3 (04:00)
[2019-06-18] MEDS ORDERED: MAGNESIUM SULFATE PMX 4GM/100M 100 ML IVPB ONE ×3 (04:00)
[2019-06-18] MEDS: MAGNESIUM SULF. PMX 20GM/500ML 500 ML IV SCH ×2 (04:25→14:43)
[2019-06-18] MEDS ORDERED: CALCIUM CARBONATE 500 MG TAB.CHEW PO PRN (05:00)
[2019-06-18] MEDS ORDERED: ONDANSETRON 2MG/ML, 2ML IVPush PRN (05:00)
[2019-06-18] MEDS ORDERED: NITROFURANTOIN (MACROBID) 100 MG CAPSULE ONE ×2 (08:46→21:27)
[2019-06-18] MEDS ORDERED: ASPIRIN 81 MG TABLET CHEW ONE (08:46)
[2019-06-18] MEDS: ASPIRIN 81 MG TABLET CHEW PO SCH (08:52)
[2019-06-18] MEDS: OMEPRAZOLE 20 MG CAPSULE.DR PO SCH (08:52)
[2019-06-18] MEDS: NITROFURANTOIN (MACROBID) 100 MG CAPSULE PO SCH ×2 (08:52→21:28)
[2019-06-18] MEDS: CHOLECALCIFEROL 1,000 UNIT TABLET PO SCH (08:52)
[2019-06-18] MEDS ORDERED: SODIUM CHLORIDE 0.9% 1,000 ML IV SCH (16:30)
[2019-06-18] MEDS ORDERED: BETAMETHASONE 6 MG/ML, 5ML IM ONE (18:02)
[2019-06-18] MEDS: BETAMETHASONE 6 MG/ML, 5ML IM SCH (18:08)
[2019-06-18 20:00] VITALS: BP 146/73
[2019-06-18] MEDS ORDERED: INSULIN LISPRO 100 UNIT/ML, 3ML VIAL SQ-INSULIN ONE (22:30)
[2019-06-18] MEDS ORDERED: INSULIN LISPRO 100 UNITS/ML, PEN SQ-INSULIN ONE (22:30)
[2019-06-19] MEDS: INSULIN LISPRO 100 UNITS/ML, PEN SQ-INSULIN PRN ×2 (01:21→13:20)
[2019-06-19] MEDS ORDERED: NITROFURANTOIN (MACROBID) 100 MG CAPSULE ONE ×2 (08:03→20:42)
[2019-06-19] MEDS ORDERED: ASPIRIN 81 MG TABLET CHEW ONE (08:03)
[2019-06-19] MEDS: NITROFURANTOIN (MACROBID) 100 MG CAPSULE PO SCH ×2 (08:34→20:57)
[2019-06-19] MEDS: OMEPRAZOLE 20 MG CAPSULE.DR PO SCH (08:34)
[2019-06-19] MEDS: ASPIRIN 81 MG TABLET CHEW PO SCH (08:34)
[2019-06-19] MEDS: CHOLECALCIFEROL 1,000 UNIT TABLET PO SCH (08:35)
[2019-06-19] MEDS: SODIUM CHLORIDE FLUSH 3ML SYRINGE IVF SCH ×2 (08:37→21:00)
[2019-06-19] MEDS ORDERED: INSULIN LISPRO 100 UNITS/ML, PEN SQ-INSULIN ONE (15:30)
[2019-06-19] MEDS: BETAMETHASONE 6 MG/ML, 5ML IM SCH (17:51)
[2019-06-19] MEDS ORDERED: hydrALAzine 20 MG/ML, 1ML ONE (21:31)
[2019-06-19] MEDS ORDERED: LACTATED RINGERS 1,000 ML IV PRN (22:36)
[2019-06-19 22:59] LABS: BASOPHILS # (AUTO) 0.02 x10^3/uL (0-0.1); BASOPHILS % (AUTO) 0 % (0-1); EOSINOPHILS % (AUTO) 0 % (1-7); LYMPHOCYTES # (AUTO) 1.36 x10^3/uL (1-3.4); LYMPHOCYTES % (AUTO) 11 % (22-44); MD NO; MEAN CORPUSCULAR HEMOGLOBIN 29.5 pg (27.0-34.8); MEAN CORPUSCULAR HGB CONC 32.9 g/dL (32.4-35.8); MEAN CORPUSCULAR VOLUME 89.6 fL (80-100); MONOCYTES # (AUTO) 0.21 x10^3/uL (0.2-0.8); MONOCYTES % (AUTO) 2 % (2-9); NEUTROPHILS # (AUTO) 10.62 x10^3/uL (1.8-6.8); NEUTROPHILS % (AUTO) 87 % (42-75); PLATELET COUNT 228 x10^3/uL (130-400); RED BLOOD COUNT 4.46 x10^6/uL (3.82-5.3); RED CELL DISTRIBUTION WIDTH 13.1 % (9.6-15.2)
[2019-06-19] MEDS ORDERED: ONDANSETRON 2MG/ML, 2ML ONE (22:59)
[2019-06-19] MEDS ORDERED: MAGNESIUM SULFATE PMX 4GM/100M 100 ML IVPB ONE (23:00)
[2019-06-19 23:03] LABS: ALANINE AMINOTRANSFERASE 9 U/L (12-78); ALBUMIN 2.5 g/dL (3.4-5.0); ANION GAP 8 mmol/L (5-15); CALCIUM 9.1 mg/dL (8.5-10.1); CHLORIDE 107 mmol/L (98-107)
[2019-06-19 23:06] LABS: ALKALINE PHOSPHATASE 94 U/L (45-117); BILIRUBIN,TOTAL 0.4 mg/dL (0.2-1.0); CREATININE 0.78 mg/dL (0.55-1.02); TOTAL PROTEIN 6.6 g/dL (6.4-8.2)
[2019-06-20] MEDS: MAGNESIUM SULF. PMX 20GM/500ML 500 ML IV SCH ×3 (00:16→17:37)
[2019-06-20] MEDS: LACTATED RINGERS 1,000 ML IV SCH ×3 (00:38→16:38)
[2019-06-20] MEDS ORDERED: OXYTOCIN 30U/ 0.9% NaCL 500ML 500 ML IV ONE (00:38)
[2019-06-20] MEDS ORDERED: TERBUTALINE 1 MG/ML, 1ML IVPush PRN (01:00)
[2019-06-20] MEDS ORDERED: TERBUTALINE 1 MG/ML, 1ML SQ PRN (01:00)
[2019-06-20] MEDS ORDERED: FENTANYL PF 100 MCG/2ML IVPush PRN (01:00)
[2019-06-20] MEDS ORDERED: MISOPROSTOL 25 MCG TABLET ONE ×2 (01:19→12:28)
[2019-06-20] MEDS: MISOPROSTOL 25 MCG TABLET VG PRN ×2 (01:32→12:34)
[2019-06-20] MEDS ORDERED: PENICILLIN GK 5,000,000 UNITS in DEXTROSE 5% 100 ML IVPB ONE (03:30)
[2019-06-20] MEDS ORDERED: OXYTOCIN 30U/ 0.9% NaCL 500ML 500 ML ONE (04:01)
[2019-06-20] MEDS ORDERED: NEWBORN KIT ONE (04:01)
[2019-06-20] MEDS ORDERED: FENTANYL PF 100 MCG/2ML ONE (04:53)
[2019-06-20] MEDS: FENTANYL PF 100 MCG/2ML IV PRN ×2 (04:59→06:24)
[2019-06-20] MEDS ORDERED: REGULAR INSULIN 100 UNITS in SODIUM CHLORIDE 0.9% 99 ML IV PRN (05:30)
[2019-06-20] MEDS ORDERED: D5%-0.2% NACL 1,000 ML IV SCH ×2 (07:30→08:30)
[2019-06-20] MEDS ORDERED: PENICILLIN GK 2,500,000 UNITS in DEXTROSE 5% 100 ML IVPB SCH (07:30)
[2019-06-20] MEDS ORDERED: NITROFURANTOIN (MACROBID) 100 MG CAPSULE ONE ×2 (07:50→21:14)
[2019-06-20] MEDS ORDERED: ASPIRIN 81 MG TABLET CHEW ONE (07:50)
[2019-06-20] MEDS ORDERED: D5%-0.45% NACL 1,000 ML IV SCH (09:00)
[2019-06-20] MEDS: SODIUM CHLORIDE FLUSH 3ML SYRINGE IVF SCH (09:00)
[2019-06-20] MEDS: CHOLECALCIFEROL 1,000 UNIT TABLET PO SCH (09:00)
[2019-06-20] MEDS: INSULIN REGULAR 100 UNITS/ML, 3ML VIAL SQ-INSULIN SCH ×2 (11:20→16:00)
[2019-06-20] MEDS: ASPIRIN 81 MG TABLET CHEW PO SCH (11:56)
[2019-06-20] MEDS: NITROFURANTOIN (MACROBID) 100 MG CAPSULE PO SCH ×2 (11:56→21:18)
[2019-06-20] MEDS: SODIUM CHLORIDE 0.9% IVPB SCH ×2 (11:57→15:30)
[2019-06-20] MEDS: PENICILLIN GK IVPB SCH ×2 (11:57→15:30)
[2019-06-20] MEDS: OMEPRAZOLE 20 MG CAPSULE.DR PO SCH (17:38)
[2019-06-20 19:40] VITALS: BP 130/76
[2019-06-20] MEDS ORDERED: MISOPROSTOL 25 MCG TABLET PO PRN (21:30)
[2019-06-20] MEDS: D5%-0.45% NACL 1,000 ML IV SCH ×2 (22:20→22:22)
[2019-06-21] MEDS: D5%-0.2% NACL 1,000 ML IV SCH ×2 (00:50→12:31)
[2019-06-21] MEDS ORDERED: FENTANYL PF 100 MCG/2ML ONE ×2 (03:16→09:35)
[2019-06-21] MEDS: FENTANYL PF 100 MCG/2ML IV PRN (03:23)
[2019-06-21] MEDS: MAGNESIUM SULF. PMX 20GM/500ML 500 ML IV SCH ×2 (03:51→16:38)
[2019-06-21] MEDS ORDERED: REGULAR INSULIN 100 UNITS in SODIUM CHLORIDE 0.9% 99 ML IV PRN (05:30)
[2019-06-21] MEDS: OMEPRAZOLE 20 MG CAPSULE.DR PO SCH (06:21)
[2019-06-21] MEDS: INSULIN REGULAR 100 UNITS/ML, 3ML VIAL SQ-INSULIN SCH ×3 (07:00→16:00)
[2019-06-21 07:14] LABS: BASOPHILS # (AUTO) 0.03 x10^3/uL (0-0.1); BASOPHILS % (AUTO) 0 % (0-1); EOSINOPHILS # (AUTO) 0.01 x10^3/uL (0-0.4); EOSINOPHILS % (AUTO) 0 % (1-7); LYMPHOCYTES % (AUTO) 23 % (22-44); MD NO; MEAN CORPUSCULAR VOLUME 90.9 fL (80-100); MEAN PLATELET VOLUME 10.6 fL (7.4-10.4); MONOCYTES # (AUTO) 0.72 x10^3/uL (0.2-0.8); MONOCYTES % (AUTO) 8 % (2-9); NEUTROPHILS # (AUTO) 6.34 x10^3/uL (1.8-6.8); NEUTROPHILS % (AUTO) 69 % (42-75); PLATELET COUNT 194 x10^3/uL (130-400); RED BLOOD COUNT 3.77 x10^6/uL (3.82-5.3); RED CELL DISTRIBUTION WIDTH 13.3 % (9.6-15.2)
[2019-06-21 07:17] LABS: ALANINE AMINOTRANSFERASE 9 U/L (12-78); ANION GAP 7 mmol/L (5-15); CALCIUM 7.6 mg/dL (8.5-10.1); CHLORIDE 106 mmol/L (98-107); CREATININE 0.72 mg/dL (0.55-1.02)
[2019-06-21 07:19] LABS: ALKALINE PHOSPHATASE 77 U/L (45-117); BILIRUBIN,TOTAL 0.2 mg/dL (0.2-1.0); TOTAL PROTEIN 5.5 g/dL (6.4-8.2)
[2019-06-21 07:30] VITALS: BP 143/90
[2019-06-21] MEDS: ASPIRIN 81 MG TABLET CHEW PO SCH (09:00)
[2019-06-21] MEDS: NITROFURANTOIN (MACROBID) 100 MG CAPSULE PO SCH ×2 (09:00→21:00)
[2019-06-21] MEDS: CHOLECALCIFEROL 1,000 UNIT TABLET PO SCH (09:00)
[2019-06-21 09:02] LABS: ACETONE, URINE Negative (Negative)
[2019-06-21] MEDS ORDERED: PROMETHAZINE 25 MG/ML, 1ML IM ONE (11:00)
[2019-06-21] MEDS ORDERED: MEPERIDINE/PF 50 MG/ML IM PRN (11:00)
[2019-06-21] MEDS ORDERED: MEPERIDINE/PF 50 MG/ML ONE (11:01)
[2019-06-21] MEDS ORDERED: OXYTOCIN 30U/ 0.9% NaCL 500ML 500 ML IV PRN (19:47)
[2019-06-22] MEDS: D5%-0.2% NACL 1,000 ML IV SCH (01:26)
[2019-06-22] MEDS ORDERED: ACETAMINOPHEN 325 MG TABLET ONE (02:44)
[2019-06-22] MEDS ORDERED: CEFAZOLIN PMX 1GM/50ML 50 ML IV SCH (03:00)
[2019-06-22] MEDS ORDERED: ACETAMINOPHEN 325 MG TABLET PO ONE (03:00)
[2019-06-22] MEDS ORDERED: METOCLOPRAMIDE 5 MG/ML, 2ML ONE (03:28)
[2019-06-22] MEDS ORDERED: SODIUM CITRATE/CITRIC ACID 30 ML UDC ONE (03:28)
[2019-06-22] MEDS ORDERED: CEFAZOLIN 1,000 MG ONE (03:42)
[2019-06-22] MEDS ORDERED: FENTANYL PF 100 MCG/2ML ONE (03:42)
[2019-06-22] MEDS ORDERED: ONDANSETRON 2MG/ML, 2ML ONE (03:42)
[2019-06-22] MEDS ORDERED: OXYTOCIN 10 UNITS/ML, 1ML ONE (03:42)
[2019-06-22] MEDS ORDERED: HYDROmorphone 2 MG/ML, 1ML ONE (03:43)
[2019-06-22] MEDS ORDERED: METOCLOPRAMIDE 5 MG/ML, 2ML IV ONE (04:00)
[2019-06-22] MEDS ORDERED: SODIUM CITRATE/CITRIC ACID 30 ML UDC PO ONE (04:00)
[2019-06-22] MEDS ORDERED: AZITHROMYCIN 500 MG in SODIUM CHLORIDE 0.9% 250 ML IV ONE (04:00)
[2019-06-22] MEDS: OMEPRAZOLE 20 MG CAPSULE.DR PO SCH (06:00)
[2019-06-22] MEDS ORDERED: OXYcodone 5 MG/5 ML ORAL.SOL UDC PO PRN (06:30)
[2019-06-22] MEDS ORDERED: HYDROmorphone 2 MG/ML, 1ML IVPush PRN (06:30)
[2019-06-22] MEDS ORDERED: FENTANYL PF 100 MCG/2ML IV PRN (06:30)
[2019-06-22] MEDS ORDERED: ONDANSETRON 2MG/ML, 2ML IV PRN ×2 (06:30→09:30)
[2019-06-22] MEDS: INSULIN REGULAR 100 UNITS/ML, 3ML VIAL SQ-INSULIN SCH ×3 (07:00→16:00)
[2019-06-22] MEDS: MAGNESIUM SULF. PMX 20GM/500ML 500 ML IV SCH ×2 (07:05→21:55)
[2019-06-22] MEDS: SODIUM CHLORIDE 0.45%, 1,000ML IV SCH ×2 (07:08→19:34)
[2019-06-22] MEDS ORDERED: OXYcodone 5 MG/5 ML ORAL.SOL UDC ONE (08:32)
[2019-06-22] MEDS: CHOLECALCIFEROL 1,000 UNIT TABLET PO SCH (09:00)
[2019-06-22] MEDS: NITROFURANTOIN (MACROBID) 100 MG CAPSULE PO SCH (09:00)
[2019-06-22] MEDS: ASPIRIN 81 MG TABLET CHEW PO SCH (09:00)
[2019-06-22] MEDS ORDERED: OXYTOCIN 30U/ 0.9% NaCL 500ML 500 ML IV SCH (09:23)
[2019-06-22] MEDS ORDERED: OXYcodone/APAP 5/325MG TABLET PO PRN (09:30)
[2019-06-22] MEDS ORDERED: METOCLOPRAMIDE 5 MG/ML, 2ML IV PRN (09:30)
[2019-06-22] MEDS ORDERED: morphine SULFATE 10 MG/ML, 1ML IVPush PRN (09:30)
[2019-06-22] MEDS ORDERED: MEPERIDINE/PF 25MG/0.5ML IM PRN (09:30)
[2019-06-22] MEDS ORDERED: REGULAR INSULIN 100 UNITS in SODIUM CHLORIDE 0.9% 99 ML IV PRN (09:30)
[2019-06-22] MEDS ORDERED: DOCUSATE 100 MG CAPSULE PO PRN (09:30)
[2019-06-22] MEDS ORDERED: MISOPROSTOL 200 MCG TABLET PR PRN (09:30)
[2019-06-22 11:26] VITALS: BP 150/83
[2019-06-22] MEDS ORDERED: morphine SULFATE 10 MG/ML, 1ML ONE (11:46)
[2019-06-22 12:49] LABS: BASOPHILS # (AUTO) 0.02 x10^3/uL (0-0.1); BASOPHILS % (AUTO) 0 % (0-1); EOSINOPHILS % (AUTO) 0 % (1-7); LYMPHOCYTES # (AUTO) 1.35 x10^3/uL (1-3.4); LYMPHOCYTES % (AUTO) 12 % (22-44); MD NO; MEAN CORPUSCULAR HEMOGLOBIN 29.7 pg (27.0-34.8); MEAN CORPUSCULAR HGB CONC 33.2 g/dL (32.4-35.8); MEAN CORPUSCULAR VOLUME 89.3 fL (80-100); MEAN PLATELET VOLUME 10.2 fL (7.4-10.4); MONOCYTES # (AUTO) 0.74 x10^3/uL (0.2-0.8); MONOCYTES % (AUTO) 7 % (2-9); NEUTROPHILS # (AUTO) 9.04 x10^3/uL (1.8-6.8); NEUTROPHILS % (AUTO) 81 % (42-75); PLATELET COUNT 166 x10^3/uL (130-400); RED BLOOD COUNT 3.29 x10^6/uL (3.82-5.3); RED CELL DISTRIBUTION WIDTH 13.5 % (9.6-15.2)
[2019-06-22] MEDS ORDERED: IBUPROFEN 600 MG TABLET ONE (14:41)
[2019-06-22] MEDS: IBUPROFEN 600 MG TABLET PO PRN (14:45)
[2019-06-22] MEDS ORDERED: OXYcodone/APAP 5/325MG TABLET ONE (19:21)
[2019-06-22] MEDS: OXYcodone/APAP 5/325MG TABLET PO PRN (19:25)
[2019-06-22 20:02] VITALS: BP 157/84
[2019-06-23] MEDS ORDERED: OXYcodone/APAP 5/325MG TABLET ONE (00:16)
[2019-06-23] MEDS: OXYcodone/APAP 5/325MG TABLET PO PRN (00:19)
[2019-06-23] MEDS: MAGNESIUM SULF. PMX 20GM/500ML 500 ML IV SCH (01:16)
[2019-06-23] MEDS ORDERED: IBUPROFEN 600 MG TABLET ONE ×2 (06:13→13:23)
[2019-06-23] MEDS: IBUPROFEN 600 MG TABLET PO PRN ×3 (06:16→19:24)
[2019-06-23] MEDS: INSULIN REGULAR 100 UNITS/ML, 3ML VIAL SQ-INSULIN SCH ×2 (07:00→11:00)
[2019-06-23] MEDS: CHOLECALCIFEROL 1,000 UNIT TABLET PO SCH (08:04)
[2019-06-23] MEDS: OMEPRAZOLE 20 MG CAPSULE.DR PO SCH (08:05)
[2019-06-23] MEDS ORDERED: DOCUSATE 100 MG CAPSULE ONE (08:06)
[2019-06-23] MEDS: DOCUSATE 100 MG CAPSULE PO PRN ×2 (08:07→19:24)
[2019-06-23] MEDS: SODIUM CHLORIDE 0.45%, 1,000ML IV SCH (08:51)
[2019-06-23 11:12] VITALS: BP 136/78
[2019-06-23] MEDS ORDERED: PRENATAL VIT/IRON/FA 1 EACH TABLET ONE (12:19)
[2019-06-23] MEDS: PRENATAL VIT/IRON/FA 1 EACH TABLET PO SCH (12:22)
[2019-06-23 14:08] VITALS: BP 152/80
[2019-06-23 15:03] VITALS: BP 143/77
[2019-06-23 16:22] VITALS: BP 143/77
[2019-06-23] MEDS ORDERED: FUROSEMIDE 20 MG TABLET PO ONE (17:30)
[2019-06-23 19:15] VITALS: BP 148/89
[2019-06-23] MEDS: SIMETHICONE 80 MG CHEW TAB PO PRN (19:24)
[2019-06-24] MEDS: SIMETHICONE 80 MG CHEW TAB PO PRN ×3 (01:27→16:29)
[2019-06-24] MEDS: IBUPROFEN 600 MG TABLET PO PRN ×3 (01:27→16:29)
[2019-06-24 01:30] VITALS: BP 156/88
[2019-06-24 05:30] VITALS: BP 146/78
[2019-06-24 05:38] LABS: BASOPHILS # (AUTO) 0.07 x10^3/uL (0-0.1); BASOPHILS % (AUTO) 1 % (0-1); EOSINOPHILS # (AUTO) 0.03 x10^3/uL (0-0.4); EOSINOPHILS % (AUTO) 0 % (1-7); LYMPHOCYTES # (AUTO) 1.89 x10^3/uL (1-3.4); LYMPHOCYTES % (AUTO) 18 % (22-44); MD NO; MEAN CORPUSCULAR HGB CONC 33.3 g/dL (32.4-35.8); MEAN CORPUSCULAR VOLUME 90.1 fL (80-100); MEAN PLATELET VOLUME 9.6 fL (7.4-10.4); MONOCYTES # (AUTO) 0.63 x10^3/uL (0.2-0.8); MONOCYTES % (AUTO) 6 % (2-9); NEUTROPHILS # (AUTO) 7.82 x10^3/uL (1.8-6.8); NEUTROPHILS % (AUTO) 75 % (42-75); PLATELET COUNT 161 x10^3/uL (130-400); RED BLOOD COUNT 2.78 x10^6/uL (3.82-5.3); RED CELL DISTRIBUTION WIDTH 13.2 % (9.6-15.2)
[2019-06-24 05:47] LABS: ALBUMIN 1.6 g/dL (3.4-5.0); ANION GAP 5 mmol/L (5-15); CALCIUM 7.7 mg/dL (8.5-10.1); CHLORIDE 107 mmol/L (98-107); CREATININE 0.56 mg/dL (0.55-1.02)
[2019-06-24 05:49] LABS: ALANINE AMINOTRANSFERASE < 6 U/L (12-78); ALKALINE PHOSPHATASE 74 U/L (45-117); BILIRUBIN,TOTAL 0.2 mg/dL (0.2-1.0); TOTAL PROTEIN 4.7 g/dL (6.4-8.2)
[2019-06-24] MEDS: OMEPRAZOLE 20 MG CAPSULE.DR PO SCH (06:25)
[2019-06-24 08:26] VITALS: BP 144/87
[2019-06-24] MEDS: PRENATAL VIT/IRON/FA 1 EACH TABLET PO SCH (09:11)
[2019-06-24] MEDS: DOCUSATE 100 MG CAPSULE PO PRN (09:11)
[2019-06-24] MEDS: FUROSEMIDE 20 MG TABLET PO SCH (09:12)
[2019-06-24] MEDS: CHOLECALCIFEROL 1,000 UNIT TABLET PO SCH (09:12)
[2019-06-24 19:15] VITALS: BP 130/80
[2019-06-25] MEDS: IBUPROFEN 600 MG TABLET PO PRN ×3 (00:08→18:15)
[2019-06-25] MEDS: SIMETHICONE 80 MG CHEW TAB PO PRN ×3 (00:08→12:03)
[2019-06-25] MEDS: DOCUSATE 100 MG CAPSULE PO PRN ×2 (00:08→09:32)
[2019-06-25 00:15] VITALS: BP 143/83
[2019-06-25] MEDS: OMEPRAZOLE 20 MG CAPSULE.DR PO SCH (05:59)
[2019-06-25 06:00] VITALS: BP 149/80
[2019-06-25 08:25] VITALS: BP 172/78
[2019-06-25] MEDS: PRENATAL VIT/IRON/FA 1 EACH TABLET PO SCH (09:32)
[2019-06-25] MEDS: CHOLECALCIFEROL 1,000 UNIT TABLET PO SCH ×2 (09:32→09:41)
[2019-06-25] MEDS: FUROSEMIDE 20 MG TABLET PO SCH (09:32)
[2019-06-25 10:15] VITALS: BP 147/94
[2019-06-25 19:30] VITALS: BP 138/89
[2019-06-25] MEDS ORDERED: DIPH,PERTUSS(ACELL),TET VAC/PF NC IM-VACC ONE (20:55)
[2019-06-26] MEDS: IBUPROFEN 600 MG TABLET PO PRN ×2 (02:24→09:23)
[2019-06-26] MEDS: SIMETHICONE 80 MG CHEW TAB PO PRN (02:24)
[2019-06-26] MEDS: OMEPRAZOLE 20 MG CAPSULE.DR PO SCH (06:09)
[2019-06-26 07:10] VITALS: BP 141/82
[2019-06-26] MEDS: CHOLECALCIFEROL 1,000 UNIT TABLET PO SCH (09:23)
[2019-06-26] MEDS: PRENATAL VIT/IRON/FA 1 EACH TABLET PO SCH (09:23)
[2019-06-26] MEDS: DOCUSATE 100 MG CAPSULE PO PRN (09:23)
[2019-06-26] MEDS ORDERED: OXYC-302 PO (09:34)
[2019-06-26] MEDS ORDERED: IBUP-1223 PO (09:34)
[2019-06-26] MEDS ORDERED: FERR325T18 PO (09:35)
[2019-06-26] MEDS ORDERED: DOCU-131 PO (09:35)
== END 2019-06-26 09:51 | disposition home or self-care (01) | DRG 787 ==
LOC: LDOP 01:58 → LDIP 03:47 → 2NE 06-22 07:32 → 2NW 06-23 15:56
PROVIDERS: ADMIT Obstetrics & Gynecology; ATTEND Obstetrics & Gynecology
PROC: 10D00Z1 Extraction of Products of Conception, Low, Open Approach (ICD-10-PCS; principal; 2019-06-22)
DX: O14.14 Severe pre-eclampsia complicating childbirth (principal); O75.2 Pyrexia during labor, not elsewhere classified; D25.2 Subserosal leiomyoma of uterus; O40.3XX0 Polyhydramnios, third trimester, not applicable or unspecified; O76 Abnormality in fetal heart rate and rhythm complicating labor and delivery; O61.9 Failed induction of labor, unspecified; O23.03 Infections of kidney in pregnancy, third trimester; O13.4 Gestational [pregnancy-induced] hypertension without significant proteinuria, complicating childbirth; O24.02 Pre-existing type 1 diabetes mellitus, in childbirth; O60.14X0 Preterm labor third trimester with preterm delivery third trimester, not applicable or unspecified; Z83.3 Family history of diabetes mellitus; Z82.49 Family history of ischemic heart disease and other diseases of the circulatory system; Z79.82 Long term (current) use of aspirin; Z79.4 Long term (current) use of insulin; Z3A.35 35 weeks gestation of pregnancy; Z37.0 Single live birth; Z88.8 Allergy status to other drugs, medicaments and biological substances
CPT/HCPCS: 36415; 80053; 81001; 81003; 82009; 82248; 82570; 82803; 82947; 82962; 83735; 84156; 84550; 85025; 86592; 86850; 86900; 87081; 87086; G0378; J0690; J0702; J1170; J1815; J2175; J2405; J2540; J2550; J3010; J0360; J2270; J2590; J2765; J3475; J7030; J7120

== ENCOUNTER 2021-01-11 19:42 | Emergency (ER) | payer MEDICAID, OTHER ==
[~2021-01-11] VITALS: Ht 165.1 cm; Wt 60.7 kg
[~2021-01-11 19:42] MED LIST changes: +ASPI-963 PO; +DOCU-131 PO; +FERR325T18 PO; +IBUP-1223 PO; +OXYC1TAB14 PO; +SERT-331 PO; -SERT25TA3 PO; +vit D PO
[2021-01-11 20:08] VITALS: BP 132/73
[2021-01-11 21:13] LABS: BASOPHILS % (AUTO) 1 % (0-1); EOSINOPHILS % (AUTO) 1 % (1-7); LYMPHOCYTES % (AUTO) 26 % (22-44); MEAN CORPUSCULAR HGB CONC 34.4 g/dL (32.4-35.8); MEAN PLATELET VOLUME 8.6 fL (7.4-10.4); MONOCYTES % (AUTO) 7 % (2-9); NEUTROPHILS % (AUTO) 65 % (42-75); PLATELET COUNT 208 x10^3/uL (130-400); RED BLOOD COUNT 4.35 x10^6/uL (3.82-5.3); RED CELL DISTRIBUTION WIDTH 13.7 % (9.6-15.2)
[2021-01-11 21:26] LABS: ANION GAP 5 mmol/L (5-15); CALCIUM 9.2 mg/dL (8.5-10.1); CHLORIDE 105 mmol/L (98-107)
[2021-01-11 21:32] LABS: ALANINE AMINOTRANSFERASE 17 U/L (12-78); ALKALINE PHOSPHATASE 49 U/L (45-117); BILIRUBIN,TOTAL 0.4 mg/dL (0.2-1.0); TOTAL PROTEIN 6.9 g/dL (6.4-8.2); TROPONIN I < 0.015 ng/mL (0.000-0.045)
--- NOTE | 2021-01-11 22:45 | NUR ---
hospice nurse: per registration, patient signed out AMA. Proper documentation provided.
== END 2021-01-11 22:47 | disposition left against medical advice (07) ==
LOC: ED 20:00
DX: O26.892 Other specified pregnancy related conditions, second trimester (principal); R10.9 Unspecified abdominal pain; R51.9 Headache, unspecified; R06.00 Dyspnea, unspecified; Z3A.18 18 weeks gestation of pregnancy
CPT/HCPCS: 36415; 71045; 76815; 80053; 84484; 85025; 93005; 99285